=== PATIENT | male | born 1950 ===

== ENCOUNTER 2017-05-29 05:49 | Day surgery (SDC) | payer MEDICARE ==
[2017-05-29] MEDS ORDERED: Midazolam 2 MG/2 ML VIAL ONE (07:51)
[2017-05-29] MEDS ORDERED: Propofol 10 mg/ml Inj (20 ML) ONE ×2 (07:51)
[2017-05-29] MEDS ORDERED: Lactated Ringer's 1,000 ML IV ONE (08:10)
--- NOTE | 2017-05-29 08:19 | CP.SDSHP ---
Same Day Surgery H & P - History Proposed Procedure: colonosocpy Pre-Op Diagnosis: screen - Previous Medical/Surgical History Cardiac: Hypertension, Arrhythmia - Allergies Allergies: Allergies No Known Allergies Allergy (Unverified 07/05/13 10:53) - Physical Exam Vital Signs: Vital Signs 05/29/17 06:45 Temperature 97.2 F L Pulse Rate 80 Respiratory 20 Rate Blood Pressure 146/84 O2 Sat by Pulse 98 Oximetry Mental Status: Alert & Oriented x3 Neuro: WNL Heart: WNL Lungs: WNL GI: WNL - {Optional Preform as Required} Abdomen: WNL - Impression Impression: screen Pt. Evaluated Today:Candidate for Anesthesia & Procedure: Yes - Date & Time Date: 05/29/17 Time: 08:05 Short Stay Discharge - Short Stay Discharge Admitting Diagnosis/Reason for Visit: SCREENING Disposition: HOME/ ROUTINE
[2017-05-29 08:56] VITALS: TEMP 97.1
[2017-05-29 09:05] VITALS: RESP 20; O2SAT 100
[2017-05-29 10:19] VITALS: BP 117/74; PULSE 66
== END 2017-05-29 10:16 | disposition home or self-care (01) ==
LOC: C.ENDO 05:49
PROVIDERS: ATTEND Internal Medicine Gastroenterology
DX: Z12.11 Encounter for screening for malignant neoplasm of colon (principal); K64.8 Other hemorrhoids; Z79.01 Long term (current) use of anticoagulants; I48.91 Unspecified atrial fibrillation; E78.5 Hyperlipidemia, unspecified; I10 Essential (primary) hypertension; K57.30 Diverticulosis of large intestine without perforation or abscess without bleeding; D12.2 Benign neoplasm of ascending colon; D12.3 Benign neoplasm of transverse colon
CPT/HCPCS: 45380; 45385; 88305; J2250; J2704; J7120